=== PATIENT | male | born 1960 | race Caucasian/White ===

== ENCOUNTER 2018-11-20 23:18 | Emergency (ER) | payer MEDICAID, OTHER ==
[~2018-11-20] VITALS: Ht 167.6 cm; Wt 77.1 kg
--- NOTE | 2018-11-21 | NUR ---
ED Nurse Note: RECIEVED PT IN CHAIR, HAS DRESSING TO LEFT LEG, S/P LACERATION FROM FALL, PT IS AWAKE AND ALERT, WILLR EMOVE DRESSING WHEN MD PRESENT, PT DENIES ANY OTHER COMPLAINTS OR INJURIES.
[2018-11-21] MEDS ORDERED: IBUPROFEN600 MG ORAL (01:10)
[2018-11-21] MEDS ORDERED: CEPHALEXIN500 MG ORAL (01:10)
--- NOTE | 2018-11-21 01:10 | Emergency Room Report ---
History of Present Illness General Chief Complaint: Laceration Source: Patient Present Illness HPI Is a 57-year-old male who has no past medical history. He presents with chief complaint laceration to his left lower leg. Onset was acute and occurred just prior to arrival. He was trying to put a tarp over his equipment and he slipped and fell sustaining a laceration to his left tibial area. No active bleeding. Pain is 7 out of 10. Worse with movement. Worse with palpation. Tetanus is up-to-date. No other complaint. Allergies: Coded Allergies: No Known Allergies (Unverified , 11/20/18) Patient History Past Medical History: see triage record, old chart reviewed Past Surgical History: none Pertinent Family History: none Social History: Denies: smoking Immunizations: UTD Nursing Documentation-PMH Past Medical History: No Stated History Review of Systems Eye: Denies: eye pain, blurred vision ENT: Denies: ear pain, nose congestion, throat swelling Respiratory: Denies: cough, shortness of breath Cardiovascular: Denies: chest pain, palpitations Gastrointestinal: Denies: abdominal pain, diarrhea, nausea, vomiting Musculoskeletal: Denies: back pain, joint pain Skin: Denies: rash Neurological: Denies: headache, numbness Endocrine: Denies: increased thirst, increased urine Hematologic/Lymphatic: Denies: easy bruising All Other Systems: negative except mentioned in HPI Physical Exam Vital Signs Date Time Temp Pulse Resp B/P (MAP) Pulse Ox O2 Delivery O2 Flow Rate FiO2 11/20/18 23:48 98.4 92 16 115/75 94 Room Air vitals normal Sp02 EP Interpretation: reviewed, normal General Appearance: well appearing, no apparent distress, alert Head: normocephalic, atraumatic Eyes: bilateral eye PERRL, bilateral eye EOMI ENT: hearing grossly normal, normal pharynx Neck: full range of motion, supple, no meningismus Respiratory: chest non-tender, lungs clear, normal breath sounds Cardiovascular #1: regular rate, rhythm, no murmur Gastrointestinal: normal bowel sounds, non tender, no mass, no organomegaly, no bruit, non-distended Musculoskeletal: back normal, gait/station normal, normal range of motion, other - Left mid tibia: There is a 10 cm V-shaped laceration with a flap. There is contused tissue. No foreign body. No tendon laceration. Psychiatric: mood/affect normal Skin: warm/dry Procedures Laceration/Wound Repair Laceration/Wound Repair : Consent: Verbal Wound Location: lower extremity Wound's Depth, Shape: irregular, flap, contused tissue Wound Length (cm): 10 Wound Explored: clean Irrigated w/ Saline (ccs): 1000 Betadine Prep?: Yes Anesthesia: 1% Lidocaine Volume Anesthetic (ccs): 10 Wound Repaired With: sutures Suture Size/Type: 3:0, proline Number of Sutures: 12 Patient Tolerated: Well Complications: None Medical Decision Making Diagnostic Impression: Primary Impression: Laceration of left lower leg Qualified Codes: S81.812A - Laceration without foreign body, left lower leg, initial encounter ER Course Patient with left lower leg laceration. No foreign body. No tendon laceration. We'll discharge home with antibiotics. Last Vital Signs Date Time Temp Pulse Resp B/P (MAP) Pulse Ox O2 Delivery O2 Flow Rate FiO2 11/20/18 23:48 98.4 92 16 115/75 94 Room Air Status: improved Disposition: HOME, SELF-CARE Condition: Stable Scripts Ibuprofen* (MOTRIN*) 600 Mg Tablet 600 MG ORAL THREE TIMES A DAY, #30 TAB 0 Refills Prov: Darian Fernandez MD 11/21/18 Cephalexin* (KEFLEX*) 500 Mg Capsule 500 MG ORAL TID, #21 CAP Prov: Darian Fernandez MD 11/21/18 Patient Instructions: Laceration Care, Adult Additional Instructions: Keep wound clean. Apply antibiotic ointment. Follow-up with your doctor in 7- 10 days for suture removal. Return if worse. Darian Fernandez MD Nov 21, 2018 01:10
[2018-11-21 01:15] VITALS: BP 136/81
[2018-11-21 01:25] VITALS: BP 115/75
== END 2018-11-21 01:25 | disposition home or self-care (01) ==
LOC: EMR 23:59
DX: S81.812A Laceration without foreign body, left lower leg, initial encounter (principal); W01.0XXA Fall on same level from slipping, tripping and stumbling without subsequent striking against object, initial encounter; Y92.89 Other specified places as the place of occurrence of the external cause
CPT/HCPCS: 12004; 99283; Z7502